=== PATIENT | male | born 1955 | race Caucasian/White ===

== ENCOUNTER 2018-01-12 15:49 | Emergency (ER) | payer MEDICAID ==
[~2018-01-12] VITALS: Ht 180.3 cm; Wt 88.0 kg
[2018-01-12 16:05] VITALS: BP 164/91; Ht 180.3 cm; Wt 88.0 kg
[2018-01-13] MEDS ORDERED: METFORMIN HCL1000 MG (15:34)
[2018-01-13] MEDS ORDERED: NEU300 ×2 (15:35→15:41)
[2018-01-13] MEDS ORDERED: MOT600 (15:36)
[2018-01-13] MEDS ORDERED: ATORVASTATIN CA40 M1 (15:36)
[2018-01-13] MEDS ORDERED: BENAZEPRIL HYDR40 M1 (15:37)
[2018-01-13] MEDS ORDERED: ASPIR 8181 MG (15:37)
[2018-01-13] MEDS ORDERED: GLIPIZIDE ER10 M1 (15:38)
[2018-01-13] MEDS ORDERED: ARTIFICIAL TEA1 EACH (15:40)
== END 2018-01-12 18:45 | disposition home or self-care (01) ==
LOC: ED 15:49
DX: S60.222A Contusion of left hand, initial encounter (principal); I10 Essential (primary) hypertension; E11.9 Type 2 diabetes mellitus without complications; E78.00 Pure hypercholesterolemia, unspecified; X58.XXXA Exposure to other specified factors, initial encounter; Y93.89 Activity, other specified; Y92.89 Other specified places as the place of occurrence of the external cause; Y99.8 Other external cause status
CPT/HCPCS: Q0092

== ENCOUNTER 2018-01-13 13:09 | Inpatient (IN) | payer MEDICAID ==
[~2018-01-13] VITALS: Ht 182.9 cm; Wt 83.7 kg
[2018-01-13 14:00] LABS: CALCIUM 8.1 mg/dL (8.5-10.1); CARBON DIOXIDE 29.3 mmol/L (21-32); CHLORIDE SERUM 105 mmol/L (98-107); GFR1 > 60 mL/min; GLUCOSE SERUM 133 mg/dL (74-106); POTASSIUM SERUM 3.2 mmol/L (3.5-5.1); SODIUM SERUM 141 mmol/L (136-145)
[2018-01-13 14:04] LABS: ALKALINE PHOSPHATASE 127 U/L (46-116); ALT/SGPT 60 U/L (16-63); AST/SGOT 54 U/L (15-37); BILIRUBIN TOTAL 0.4 mg/dL (0.20-1.00); TOTAL PROTEIN, SERUM 6.8 g/dL (6.4-8.2)
[2018-01-13 14:09] LABS: ALBUMIN 2.8 g/dL (3.4-5.0)
[2018-01-13 14:25] LABS: BASOPHIL % 0.1 % (0-2); PLATELET COUNT 298 x10^3mcL (130-400); RED CELL DISTRIBUTION WIDTH 13.7 % (11.5-14.5)
[2018-01-13] MEDS ORDERED: METFORMIN HCL1000 MG (15:34)
[2018-01-13] MEDS ORDERED: NEU300 ×2 (15:35→15:41)
[2018-01-13] MEDS ORDERED: ATORVASTATIN CA40 M1 (15:36)
[2018-01-13] MEDS ORDERED: MOT600 (15:36)
[2018-01-13] MEDS ORDERED: BENAZEPRIL HYDR40 M1 (15:37)
[2018-01-13] MEDS ORDERED: ASPIR 8181 MG (15:37)
[2018-01-13] MEDS ORDERED: GLIPIZIDE ER10 M1 (15:38)
[2018-01-13] MEDS ORDERED: ARTIFICIAL TEA1 EACH (15:40)
[2018-01-13 16:15] LABS: MAGNESIUM 1.6 mg/dL (1.8-2.4); PHOSPHOROUS 3.4 mg/dL (2.5-4.9)
[2018-01-13 16:19] LABS: UA SPECIFIC GRAVITY >=1.030 (1.005-1.035); microscopic required? YES; urine erythrocyte 3+ (NEGATIVE)
[2018-01-13 16:22] LABS: FREE T4 1.17 ng/dL (0.76-1.46); FREE THYROXINE INDEX 2.8 ug/dL (1.4-4.5); T3 TOTAL 0.91 ng/mL; T4(THYROXINE) 7.9 ug/dL (4.7-13.3)
[2018-01-13 16:28] VITALS: BP 164/96
[2018-01-13 16:33] LABS: AMPHETAMINE QUAL UR POSITIVE (See below)
[2018-01-13 17:48] VITALS: BP 164/96
[2018-01-13 17:51] VITALS: Ht 182.9 cm; Wt 83.7 kg
[2018-01-13 18:28] VITALS: BP 138/78
[2018-01-13 18:41] VITALS: BP 138/78
[2018-01-13 18:57] LABS: IRON 16 ug/dL (65-170); TOTAL IRON BINDING CAPACITY 239 ug/dL (250-450)
[2018-01-13 22:21] VITALS: BP 144/73
[2018-01-14 05:45] VITALS: BP 133/69
[2018-01-14 07:14] LABS: BASOPHIL % 0.2 % (0-2); PLATELET COUNT 244 x10^3mcL (130-400)
[2018-01-14 07:15] LABS: RED CELL DISTRIBUTION WIDTH 14.8 % (11.5-14.5)
[2018-01-14 07:26] LABS: CARBON DIOXIDE 28.1 mmol/L (21-32); CHLORIDE SERUM 104 mmol/L (98-107); CREATININE SERUM 1.1 mg/dL (0.7-1.3); GFR1 > 60 mL/min; GLUCOSE SERUM 143 mg/dL (74-106); MAGNESIUM 2.1 mg/dL (1.8-2.4); POTASSIUM SERUM 3.4 mmol/L (3.5-5.1); SODIUM SERUM 138 mmol/L (136-145)
[2018-01-14 07:53] LABS: CALCIUM 7.9 mg/dL (8.5-10.1)
[2018-01-14 08:11] VITALS: BP 144/78
[2018-01-14 16:32] VITALS: BP 139/76
[2018-01-14 20:58] VITALS: BP 136/64
[2018-01-15 05:42] VITALS: BP 152/80
[2018-01-15 07:24] LABS: BASOPHIL % 0.4 % (0-2); CALCIUM 7.9 mg/dL (8.5-10.1); CARBON DIOXIDE 29.9 mmol/L (21-32); CHLORIDE SERUM 104 mmol/L (98-107); GFR1 > 60 mL/min; GLUCOSE SERUM 109 mg/dL (74-106); MAGNESIUM 2.1 mg/dL (1.8-2.4); PHOSPHOROUS 3.1 mg/dL (2.5-4.9); PLATELET COUNT 258 x10^3mcL (130-400); POTASSIUM SERUM 3.7 mmol/L (3.5-5.1); SODIUM SERUM 138 mmol/L (136-145)
[2018-01-15 07:25] LABS: RED CELL DISTRIBUTION WIDTH 14.8 % (11.5-14.5)
[2018-01-15 08:21] VITALS: BP 170/80
[2018-01-15 13:32] VITALS: BP 145/74
[2018-01-15 16:29] VITALS: BP 155/80
[2018-01-15 20:27] VITALS: BP 158/82
[2018-01-16 06:01] VITALS: BP 108/67
[2018-01-16 06:05] VITALS: BP 161/84
[2018-01-16 07:06] LABS: BASOPHIL % 0.5 % (0-2); CALCIUM 8.4 mg/dL (8.5-10.1); CARBON DIOXIDE 32.7 mmol/L (21-32); CHLORIDE SERUM 105 mmol/L (98-107); CREATININE SERUM 0.9 mg/dL (0.7-1.3); GFR1 > 60 mL/min; GLUCOSE SERUM 89 mg/dL (74-106); PHOSPHOROUS 3.7 mg/dL (2.5-4.9); PLATELET COUNT 288 x10^3mcL (130-400); POTASSIUM SERUM 4.3 mmol/L (3.5-5.1); RED CELL DISTRIBUTION WIDTH 14.5 % (11.5-14.5); SODIUM SERUM 141 mmol/L (136-145)
[2018-01-16 10:00] VITALS: BP 161/89
[2018-01-16] MEDS ORDERED: ECO81 PO (12:05)
[2018-01-16] MEDS ORDERED: LASIX40 MG PO (12:06)
[2018-01-16] MEDS ORDERED: POTASSIUM CHLO10 MEQ PO (12:06)
[2018-01-16] MEDS ORDERED: LEVAQUIN750 MG PO (12:07)
[2018-01-16 13:43] VITALS: BP 157/84
[2018-01-16 13:47] VITALS: BP 157/84
== END 2018-01-16 14:48 | disposition home or self-care (01) | DRG 139 ==
LOC: ED 13:09 → MU 14:52 → DU 16:26 → MU 16:43
PROVIDERS: Emergency Medicine; Family Medicine; Internal Medicine
DX: J18.9 Pneumonia, unspecified organism (principal); J96.01 Acute respiratory failure with hypoxia; N17.0 Acute kidney failure with tubular necrosis; E43 Unspecified severe protein-calorie malnutrition; I50.41 Acute combined systolic (congestive) and diastolic (congestive) heart failure; D64.9 Anemia, unspecified; I11.0 Hypertensive heart disease with heart failure; I16.1 Hypertensive emergency; E11.42 Type 2 diabetes mellitus with diabetic polyneuropathy; E11.65 Type 2 diabetes mellitus with hyperglycemia; E87.6 Hypokalemia; E83.42 Hypomagnesemia; F15.10 Other stimulant abuse, uncomplicated; F17.210 Nicotine dependence, cigarettes, uncomplicated; R74.0 Nonspecific elevation of levels of transaminase and lactic acid dehydrogenase [LDH]; Z79.82 Long term (current) use of aspirin; Z68.26 Body mass index [BMI] 26.0-26.9, adult; Z79.84 Long term (current) use of oral hypoglycemic drugs; Z79.1 Long term (current) use of non-steroidal anti-inflammatories (NSAID)
CPT/HCPCS: 82962; 83880; 84439; 94150; 97116-GP; 97530-GP; 97535-GP; 99406; J0456; J0696; J1644; J1940; J3475; J3490; J7030; J7050; J7613; J7620; J7644; Q0092

== ENCOUNTER 2018-02-27 04:41 | Emergency (ER) | payer MEDICAID ==
[~2018-02-27] VITALS: Ht 180.3 cm; Wt 81.6 kg
[~2018-02-27 04:41] MED LIST: ARTIFICIAL TEA1 EACH; ASPIR 8181 MG; ATORVASTATIN CA40 M1; BENAZEPRIL HYDR40 M1; ECO81 PO; GLIPIZIDE ER10 M1; LASIX40 MG PO; LEVAQUIN750 MG PO; METFORMIN HCL1000 MG; MOT600; NEU300; POTASSIUM CHLO10 MEQ PO
[2018-02-27 04:46] VITALS: Ht 180.3 cm; Wt 81.6 kg
[2018-02-27 05:29] LABS: UA SPECIFIC GRAVITY 1.025 (1.005-1.035); microscopic required? YES; urine erythrocyte 2+ (NEGATIVE)
[2018-02-27 05:33] LABS: BASOPHIL % 0.7 % (0-2); PLATELET COUNT 372 x10^3mcL (130-400); RED CELL DISTRIBUTION WIDTH 14.4 % (11.5-14.5)
[2018-02-27 07:13] LABS: CALCIUM 8.8 mg/dL (8.5-10.1); CARBON DIOXIDE 24.3 mmol/L (21-32); CHLORIDE SERUM 105 mmol/L (98-107); CREATININE SERUM 1.3 mg/dL (0.7-1.3); GFR1 59 mL/min; GLUCOSE SERUM 148 mg/dL (74-106); POTASSIUM SERUM 3.7 mmol/L (3.5-5.1); SODIUM SERUM 139 mmol/L (136-145)
[2018-02-27 07:19] LABS: ALBUMIN 2.7 g/dL (3.4-5.0); ALKALINE PHOSPHATASE 91 U/L (46-116); ALT/SGPT 32 U/L (16-63); AST/SGOT 28 U/L (15-37); BILIRUBIN TOTAL 0.2 mg/dL (0.20-1.00); TOTAL PROTEIN, SERUM 6.2 g/dL (6.4-8.2)
[2018-02-27 07:31] VITALS: BP 158/98
== END 2018-02-27 07:31 | disposition short-term general hospital (02) ==
LOC: ED 04:41
PROVIDERS: Emergency Medicine
DX: I63.9 Cerebral infarction, unspecified (principal); I10 Essential (primary) hypertension; E11.9 Type 2 diabetes mellitus without complications; E78.5 Hyperlipidemia, unspecified; F17.210 Nicotine dependence, cigarettes, uncomplicated; D64.9 Anemia, unspecified
CPT/HCPCS: 83880; J3490

== ENCOUNTER 2018-06-07 08:54 | Inpatient (IN) | payer OTHER, MEDICAID ==
[~2018-06-07] VITALS: Ht 180.3 cm; Wt 99.1 kg
[2018-06-07 09:38] LABS: BASOPHIL % 0.7 % (0-2); PLATELET COUNT 295 x10^3mcL (130-400)
[2018-06-07 09:40] LABS: RED CELL DISTRIBUTION WIDTH 16.4 % (11.5-14.5)
[2018-06-07 09:48] LABS: CALCIUM 8.1 mg/dL (8.5-10.1); CARBON DIOXIDE 27.4 mmol/L (21-32); CREATININE SERUM 1.7 mg/dL (0.7-1.3)
[2018-06-07 09:52] LABS: BILIRUBIN TOTAL 0.2 mg/dL (0.20-1.00)
[2018-06-07 09:54] LABS: ALBUMIN 2.4 g/dL (3.4-5.0); TOTAL PROTEIN, SERUM 6.1 g/dL (6.4-8.2)
[2018-06-07] MEDS ORDERED: TRAZODONE50 M1 (10:51)
[2018-06-07] MEDS ORDERED: NATURAL IRON65 MG PO (10:51)
[2018-06-07] MEDS ORDERED: ENALAPRIL MALE2.5 MG (10:51)
[2018-06-07] MEDS ORDERED: NORVASC2.5 MG (10:51)
[2018-06-07] MEDS ORDERED: COREG CR20 MG (10:51)
[2018-06-07] MEDS ORDERED: BUS5 (10:52)
[2018-06-07 12:03] VITALS: BP 163/87
[2018-06-07 13:01] LABS: MAGNESIUM 1.6 mg/dL (1.8-2.4); PHOSPHOROUS 3.5 mg/dL (2.5-4.9)
[2018-06-07 13:12] LABS: CHOLESTEROL/HDL RATIO 2.7
[2018-06-07 13:14] LABS: FREE T4 0.87 ng/dL (0.76-1.46); FREE THYROXINE INDEX 2.2 ug/dL (1.4-4.5); T4(THYROXINE) 6.2 ug/dL (4.7-13.3)
[2018-06-07 13:40] LABS: T3 TOTAL 0.94 ng/mL
[2018-06-07 17:48] VITALS: BP 143/72
[2018-06-07 21:36] VITALS: BP 162/80
[2018-06-07 21:44] LABS: microscopic required? YES; urine erythrocyte 2+ (NEGATIVE)
[2018-06-07 21:50] LABS: AMPHETAMINE QUAL UR NONE DETECTED (See below)
[2018-06-08 06:20] VITALS: BP 118/93
[2018-06-08 06:24] LABS: BASOPHIL % 0.4 % (0-2); PLATELET COUNT 277 x10^3mcL (130-400)
[2018-06-08 06:38] LABS: RED CELL DISTRIBUTION WIDTH 16.2 % (11.5-14.5)
[2018-06-08 06:42] LABS: CALCIUM 8.3 mg/dL (8.5-10.1); CARBON DIOXIDE 27.2 mmol/L (21-32); CREATININE SERUM 1.6 mg/dL (0.7-1.3); POTASSIUM SERUM 3.5 mmol/L (3.5-5.1)
[2018-06-08 08:12] VITALS: BP 149/67
[2018-06-08 12:02] VITALS: BP 144/75
[2018-06-08 16:30] VITALS: BP 150/75
[2018-06-08 20:54] VITALS: BP 141/73
[2018-06-09 05:43] VITALS: BP 126/68
[2018-06-09 06:28] LABS: BASOPHIL % 0.3 % (0-2); PLATELET COUNT 277 x10^3mcL (130-400)
[2018-06-09 06:52] LABS: CALCIUM 8.1 mg/dL (8.5-10.1); CARBON DIOXIDE 29.7 mmol/L (21-32); CREATININE SERUM 1.8 mg/dL (0.7-1.3); POTASSIUM SERUM 3.6 mmol/L (3.5-5.1)
[2018-06-09 07:27] LABS: RED CELL DISTRIBUTION WIDTH 16.1 % (11.5-14.5)
[2018-06-09 10:18] VITALS: BP 150/70
[2018-06-09 18:08] VITALS: BP 162/83
[2018-06-09 18:30] VITALS: BP 156/75
[2018-06-09 21:04] VITALS: BP 166/82
[2018-06-10 06:12] LABS: BASOPHIL % 0.7 % (0-2); PLATELET COUNT 247 x10^3mcL (130-400)
[2018-06-10 06:38] LABS: CALCIUM 7.8 mg/dL (8.5-10.1); CARBON DIOXIDE 28.5 mmol/L (21-32); CREATININE SERUM 1.7 mg/dL (0.7-1.3); MAGNESIUM 1.9 mg/dL (1.8-2.4); PHOSPHOROUS 4.9 mg/dL (2.5-4.9); POTASSIUM SERUM 3.3 mmol/L (3.5-5.1)
[2018-06-10 07:54] LABS: RED CELL DISTRIBUTION WIDTH 16.2 % (11.5-14.5)
[2018-06-10 09:21] VITALS: BP 150/74
[2018-06-10 17:06] VITALS: BP 151/78
[2018-06-10 20:57] VITALS: BP 156/72
[2018-06-11 04:58] VITALS: BP 115/63
[2018-06-11 07:52] LABS: BASOPHIL % 0.6 % (0-2); PLATELET COUNT 268 x10^3mcL (130-400)
[2018-06-11 07:58] LABS: RED CELL DISTRIBUTION WIDTH 15.1 % (11.5-14.5)
[2018-06-11 08:31] LABS: CALCIUM 7.7 mg/dL (8.5-10.1); CARBON DIOXIDE 30.2 mmol/L (21-32); CREATININE SERUM 1.9 mg/dL (0.7-1.3); POTASSIUM SERUM 3.4 mmol/L (3.5-5.1)
[2018-06-11 09:08] VITALS: BP 149/71
[2018-06-11 09:48] VITALS: BP 136/67
[2018-06-11 17:13] VITALS: BP 150/69
[2018-06-11 19:10] VITALS: BP 150/75
[2018-06-11 21:18] VITALS: BP 138/69
[2018-06-12 05:54] VITALS: BP 141/77
[2018-06-12 07:04] LABS: CALCIUM 7.9 mg/dL (8.5-10.1); CARBON DIOXIDE 32.1 mmol/L (21-32); CREATININE SERUM 1.9 mg/dL (0.7-1.3); POTASSIUM SERUM 3.6 mmol/L (3.5-5.1)
[2018-06-12 07:50] LABS: BASOPHIL % 0.4 % (0-2); PLATELET COUNT 248 x10^3mcL (130-400)
[2018-06-12 07:52] LABS: RED CELL DISTRIBUTION WIDTH 16.7 % (11.5-14.5)
[2018-06-12 08:13] LABS: microalbumin:creatinine ratio 3873.7 (0.0-30.0)
[2018-06-12 09:16] VITALS: BP 156/68
[2018-06-12 17:45] VITALS: BP 118/64
[2018-06-12 19:15] VITALS: BP 133/75
[2018-06-13 05:31] VITALS: BP 115/59
[2018-06-13 06:57] LABS: CALCIUM 8.1 mg/dL (8.5-10.1); CARBON DIOXIDE 31.6 mmol/L (21-32); POTASSIUM SERUM 4.1 mmol/L (3.5-5.1)
[2018-06-13 07:23] LABS: BASOPHIL % 0.6 % (0-2); PLATELET COUNT 237 x10^3mcL (130-400)
[2018-06-13 07:24] LABS: RED CELL DISTRIBUTION WIDTH 16.3 % (11.5-14.5)
[2018-06-13 07:38] VITALS: BP 132/70
[2018-06-13 09:05] LABS: RAPID PLASMA REAGIN Non Reactive (Non Reactive)
[2018-06-13] MEDS ORDERED: BUM1 PO (09:16)
[2018-06-13 17:14] VITALS: BP 129/64
[2018-06-13 21:05] VITALS: BP 147/73
[2018-06-14 06:06] VITALS: BP 155/59
[2018-06-14 06:37] LABS: CALCIUM 8.3 mg/dL (8.5-10.1); CARBON DIOXIDE 31.3 mmol/L (21-32); CREATININE SERUM 2.2 mg/dL (0.7-1.3); POTASSIUM SERUM 4.2 mmol/L (3.5-5.1)
[2018-06-14 09:27] VITALS: BP 134/63
[2018-06-14 17:00] VITALS: BP 158/83
[2018-06-14 20:29] VITALS: BP 158/83
[2018-06-14 21:05] VITALS: BP 172/90
[2018-06-15 09:05] LABS: COMPLEMENT TOTAL/CH50 56 U/mL (>41)
[2018-06-16 08:13] LABS: COMPLEMENT C3 152 mg/dL (82-167); COMPLEMENT C4 31 mg/dL (14-44)
[2018-06-21 12:45] LABS: CK-BB 0; CK-MB 0; CK-MM 100; MACRO TYPE 1 0; MACRO TYPE 2 0
== END 2018-06-14 23:00 | DRG 682 ==
LOC: ED 08:54 → MU 11:11 → DU 11:11 → MU 12:02 → DU 12:03 → MU 06-08 13:11
PROVIDERS: Emergency Medicine; Internal Medicine; Internal Medicine Nephrology; ADMIT General Practice
DX: N17.0 Acute kidney failure with tubular necrosis (principal); I50.43 Acute on chronic combined systolic (congestive) and diastolic (congestive) heart failure; I13.0 Hypertensive heart and chronic kidney disease with heart failure and stage 1 through stage 4 chronic kidney disease, or unspecified chronic kidney disease; E44.0 Moderate protein-calorie malnutrition; I42.9 Cardiomyopathy, unspecified; E11.21 Type 2 diabetes mellitus with diabetic nephropathy; E11.22 Type 2 diabetes mellitus with diabetic chronic kidney disease; E11.65 Type 2 diabetes mellitus with hyperglycemia; N18.9 Chronic kidney disease, unspecified; R80.9 Proteinuria, unspecified; F15.21 Other stimulant dependence, in remission; E83.42 Hypomagnesemia; F12.10 Cannabis abuse, uncomplicated; E78.00 Pure hypercholesterolemia, unspecified; E78.5 Hyperlipidemia, unspecified; Z87.891 Personal history of nicotine dependence; Z91.19 Patient's noncompliance with other medical treatment and regimen; Z79.84 Long term (current) use of oral hypoglycemic drugs
CPT/HCPCS: 82962; 83880; 84439; 97110-GP; 97116-GP; 97530-GP; J1815; J1940; J2543; J3475; J7030; J7040; J7050; P9047; Q0092